=== PATIENT | female | born 1985 | race Hispanic/Latino ===

== ENCOUNTER 2018-09-29 09:04 | Outpatient (CLI) | payer SELFPAY | END 2018-09-29 09:05 | disposition home or self-care (01) | LOC: C.LAB 09:04 | DX: K29.70 Gastritis, unspecified, without bleeding (principal) ==

== ENCOUNTER 2018-10-11 09:40 | Outpatient (CLI) | payer SELFPAY | END 2018-10-11 09:41 | disposition home or self-care (01) | LOC: C.LAB 09:40 | DX: D64.9 Anemia, unspecified (principal); E78.2 Mixed hyperlipidemia; K76.9 Liver disease, unspecified; E07.9 Disorder of thyroid, unspecified; N39.0 Urinary tract infection, site not specified; E10.9 Type 1 diabetes mellitus without complications; M12.9 Arthropathy, unspecified; R10.9 Unspecified abdominal pain ==

== ENCOUNTER 2018-12-07 09:32 | Outpatient (CLI) | payer SELFPAY | END 2018-12-07 09:33 | disposition home or self-care (01) | LOC: C.LAB 09:32 ==

== ENCOUNTER 2018-12-09 13:51 | Outpatient (CLI) | payer SELFPAY | END 2018-12-09 13:52 | disposition home or self-care (01) | LOC: C.USIC 13:51 ==